=== PATIENT | female | born 1945 | race Two or more races ===

== ENCOUNTER 2017-03-11 16:02 | Inpatient (IN) | payer SELFPAY ==
[~2017-03-11] VITALS: Ht 152.4 cm; Wt 48.2 kg
[~2017-03-11 16:02] MED LIST: [UNRECOGNIZED DRUG - OTHER]
[2017-03-11] MEDS ORDERED: ASPirin 81 mg TAB PO ONE (16:45)
[2017-03-11 17:06] LABS: Basophils # (auto) 0 uL; Basophils % (auto) 0.6 % (0.0-2.0); CONDITION Y; DEFINITIVE SEE PRINTOUT; Eosinophils # (auto) 0.1 uL; Eosinophils % (auto) 1.3 % (0.0-7.0); Hematocrit 33.3 % (36.0-46.0); Hemoglobin 11.1 g/dL (12.2-16.2); Lymphocytes # (auto) 1.5 uL; Lymphocytes % (auto) 22.7 % (10.0-50.0); Mean Corpuscular Hemoglobin 25.3 pg (28.0-32.0); Mean Corpuscular Hgb Conc. 33.2 g/dL (32.0-36.0); Mean Corpuscular Volume 76.2 fL (80.0-100.0); Mean Platelet Volume 8.9 fL (7.4-10.4); Monocytes # (auto) 0.6 uL; Monocytes % (auto) 9.4 % (0.0-12.0); Neutrophils # (auto) 4.5 uL; Platelet Count (auto) 288 10^3/uL (140-450); White Blood Cell 6.8 10^3/uL (4.4-10.8)
[2017-03-11 17:23] LABS: Albumin 3.6 g/dL (3.4-5.0); Anion Gap 9 (5-15); Aspartate Aminotransferase 17 U/L (15-37); BUN/Creatinine Ratio 20.7; Blood Urea Nitrogen 12 mg/dL (7-18); Calcium 8.3 mg/dL (8.5-10.1); Carbon Dioxide 22 mmol/L (21-32); Chloride 101 mmol/L (98-107); GFR African American 132 mL/min; GFR Non-African American 109 mL/min; Glucose 83 mg/dL (74-106); Magnesium 2.1 mg/dL (1.6-2.6); Potassium 3.8 mmol/L (3.5-5.1); Sodium 132 mmol/L (136-145)
[2017-03-11 17:34] LABS: INR 0.99 (0.9-1.15); Partial Thromboplastin Time 26.6 sec (22.64-33.71); Prothrombin Time 10.8 sec (9.37-12.3)
[2017-03-11 17:51] LABS: Alkaline Phosphatase 127 U/L (45-117); Bilirubin, Total 0.5 mg/dL (0.2-1.0); Total Protein 6.6 g/dL (6.4-8.2)
[2017-03-11 18:13] LABS: B-Type Natriuretic Peptide 38.99 pg/mL (0-100)
[2017-03-11 18:16] LABS: Temperature: 23.9 C (20.0-25.0)
[2017-03-11] MEDS ORDERED: LACTULOSE 20Gm/30ML SOLN PO PRN (18:30)
[2017-03-11] MEDS ORDERED: TEMAZEPAM 15 MG CAP PO PRN (18:30)
[2017-03-11] MEDS ORDERED: MORPHINE SULF INJ 2 MG/ML SYRINGE 1ML IV PRN ×2 (18:30)
[2017-03-11] MEDS ORDERED: ENALAPRIL MALEATE 10 MG TAB PO ONE (18:30)
[2017-03-11] MEDS ORDERED: LORazepam 0.5 MG TAB PO PRN (18:30)
[2017-03-11] MEDS ORDERED: NITROGLYCERIN 0.4 MG SL TAB SL PRN (18:30)
[2017-03-11] MEDS ORDERED: NITROGLYCERIN 0.2MG/HR TOPICAL PATCH TD ONE (18:30)
[2017-03-11] MEDS ORDERED: PANTOPRAZOLE 40 MG TAB PO ONE (18:30)
[2017-03-11] MEDS ORDERED: ENOXAPARIN SOD 40 MG/0.4 ML SYRINGE SC ONE (18:30)
[2017-03-11] MEDS ORDERED: ACETAMINOPHEN 500 MG TAB PO PRN (18:30)
[2017-03-11] MEDS ORDERED: LABETALOL HCL 5 MG/ML ML 20ML VIAL IV PRN ×2 (19:30)
[2017-03-11 20:00] VITALS: BP 157/98
[2017-03-11 20:30] VITALS: BP 157/98
[2017-03-11] MEDS: SODIUM CHLOR 0.9% PF (SALINE LOCK) 10ML VIAL IV SCH (21:14)
[2017-03-11] MEDS: ATORVASTATIN 20 MG TAB PO SCH (21:14)
[2017-03-11] MEDS: METOPROLOL TARTRATE 25 MG TAB PO SCH (21:15)
[2017-03-11] MEDS: HYDROcodone-ACET 5/325MG TAB PO PRN (23:27)
[2017-03-12] MEDS ORDERED: ATOR10TA52 PO (01:58)
[2017-03-12] MEDS ORDERED: LEV100T PO (02:00)
[2017-03-12] MEDS ORDERED: ASPI1TAB37 PO (02:01)
[2017-03-12] MEDS ORDERED: CLOP75TA41 PO (02:02)
[2017-03-12 04:50] VITALS: BP 102/51
[2017-03-12 06:37] LABS: Albumin 3.3 g/dL (3.4-5.0); Alkaline Phosphatase 114 U/L (45-117); Anion Gap 10 (5-15); Aspartate Aminotransferase 13 U/L (15-37); Bilirubin, Total 0.5 mg/dL (0.2-1.0); Blood Urea Nitrogen 13 mg/dL (7-18); Calcium 8.6 mg/dL (8.5-10.1); Carbon Dioxide 23 mmol/L (21-32); Chloride 100 mmol/L (98-107); Cholesterol 99 mg/dL (< 200); GFR African American 149 mL/min; GFR Non-African American 124 mL/min; Glucose 87 mg/dL (74-106); HDL Cholesterol 38 mg/dL (40-59); LDL Cholesterol 60 mg/dL (< 100); Potassium 3.8 mmol/L (3.5-5.1); Sodium 133 mmol/L (136-145); Total Protein 6.2 g/dL (6.4-8.2); Triglycerides 99 mg/dL (< 150)
[2017-03-12] MEDS: SODIUM CHLOR 0.9% PF (SALINE LOCK) 10ML VIAL IV SCH ×3 (07:05→22:31)
[2017-03-12 08:00] VITALS: BP 99/51
[2017-03-12 08:31] VITALS: BP 99/51
[2017-03-12] MEDS: ENOXAPARIN SOD 40 MG/0.4 ML SYRINGE SC SCH (09:51)
[2017-03-12] MEDS: PANTOPRAZOLE 40 MG TAB PO SCH (09:51)
[2017-03-12] MEDS: ASPirin 81 mg TAB PO SCH (09:51)
[2017-03-12] MEDS: METOPROLOL TARTRATE 25 MG TAB PO SCH ×2 (09:52→22:32)
[2017-03-12] MEDS: ENALAPRIL MALEATE 10 MG TAB PO SCH (09:52)
[2017-03-12] MEDS: NITROGLYCERIN 0.2MG/HR TOPICAL PATCH TD SCH (09:53)
[2017-03-12] MEDS ORDERED: GASTROGRAFIN 120 ML SOL ONE (11:20)
[2017-03-12 13:00] VITALS: BP 162/79
[2017-03-12] MEDS ORDERED: ADENOSINE 41 MG in GIVE UN-DILUTED 0 ML IV STA (13:04)
[2017-03-12] MEDS: HYDROcodone-ACET 5/325MG TAB PO PRN ×2 (16:10→22:33)
[2017-03-12 16:46] VITALS: BP 138/76
[2017-03-12 22:00] VITALS: BP 150/68
[2017-03-12] MEDS: ATORVASTATIN 20 MG TAB PO SCH (22:32)
[2017-03-12] MEDS: PROMETHAZINE HCL 25 MG/ML 1ML IV PRN (22:33)
[2017-03-12] MEDS: LABETALOL HCL 5 MG/ML ML 20ML VIAL IV PRN (23:53)
[2017-03-13 00:02] VITALS: BP 195/85
[2017-03-13] MEDS: LABETALOL HCL 5 MG/ML ML 20ML VIAL IV PRN (00:07)
[2017-03-13 00:25] VITALS: BP 171/93
[2017-03-13] MEDS ORDERED: hydrALAZINE HCL 20 MG/ML VL IV ONE (01:00)
[2017-03-13 05:00] VITALS: BP 141/70
[2017-03-13] MEDS: SODIUM CHLOR 0.9% PF (SALINE LOCK) 10ML VIAL IV SCH ×3 (05:44→22:10)
[2017-03-13 08:28] VITALS: BP 153/73
[2017-03-13] MEDS: PROMETHAZINE HCL 25 MG/ML 1ML IV PRN (09:55)
[2017-03-13] MEDS: NITROGLYCERIN 0.2MG/HR TOPICAL PATCH TD SCH (10:00)
[2017-03-13] MEDS: ENOXAPARIN SOD 40 MG/0.4 ML SYRINGE SC SCH (10:15)
[2017-03-13] MEDS: METOPROLOL TARTRATE 25 MG TAB PO SCH ×2 (10:16→22:11)
[2017-03-13] MEDS: ENALAPRIL MALEATE 10 MG TAB PO SCH (10:17)
[2017-03-13] MEDS: PANTOPRAZOLE 40 MG TAB PO SCH (10:18)
[2017-03-13] MEDS: ASPirin 81 mg TAB PO SCH (10:18)
[2017-03-13 12:30] VITALS: BP_SYST 117; BP_SYST 131; BP_DIAS 112; BP_DIAS 68
[2017-03-13 14:46] LABS: Amylase 89 U/L (25-115)
[2017-03-13 22:00] VITALS: BP 114/75
[2017-03-13] MEDS: ATORVASTATIN 20 MG TAB PO SCH (22:10)
[2017-03-14 05:00] VITALS: BP 119/75
[2017-03-14] MEDS: SODIUM CHLOR 0.9% PF (SALINE LOCK) 10ML VIAL IV SCH (06:30)
[2017-03-14 06:35] LABS: Basophils # (auto) 0 uL; Basophils % (auto) 0.8 % (0.0-2.0); CONDITION Y; DEFINITIVE SEE PRINTOUT; Eosinophils # (auto) 0.1 uL; Eosinophils % (auto) 2.3 % (0.0-7.0); Hemoglobin 11.9 g/dL (12.2-16.2); Lymphocytes % (auto) 30.8 % (10.0-50.0); Mean Corpuscular Hgb Conc. 32.1 g/dL (32.0-36.0); Mean Platelet Volume 9.4 fL (7.4-10.4); Monocytes # (auto) 0.8 uL; Monocytes % (auto) 12.8 % (0.0-12.0); Neutrophils # (auto) 3.5 uL; Neutrophils % (auto) 53.3 % (37.0-80.0); Platelet Count (auto) 310 10^3/uL (140-450); Red Cell Distribution Width 16.2 % (11.6-16.0); White Blood Cell 6.6 10^3/uL (4.4-10.8)
[2017-03-14 07:00] LABS: Albumin 3.7 g/dL (3.4-5.0); BUN/Creatinine Ratio 18.5; Bilirubin, Total 0.4 mg/dL (0.2-1.0); Calcium 8.9 mg/dL (8.5-10.1)
[2017-03-14 08:00] VITALS: BP 112/73
[2017-03-14] MEDS: PANTOPRAZOLE 40 MG TAB PO SCH (09:25)
[2017-03-14] MEDS: METOPROLOL TARTRATE 25 MG TAB PO SCH (09:26)
[2017-03-14] MEDS: ASPirin 81 mg TAB PO SCH (09:26)
[2017-03-14] MEDS: ENALAPRIL MALEATE 10 MG TAB PO SCH (09:27)
[2017-03-14] MEDS: NITROGLYCERIN 0.2MG/HR TOPICAL PATCH TD SCH (09:32)
[2017-03-14] MEDS: ENOXAPARIN SOD 40 MG/0.4 ML SYRINGE SC SCH (09:32)
[2017-03-14 12:52] VITALS: BP 110/57
[2017-03-14] MEDS ORDERED: METO25TA3 PO (14:05)
[2017-03-14] MEDS ORDERED: ENA10T PO (14:05)
[2017-03-14] MEDS ORDERED: DIC10C PO (14:08)
[2017-03-14 14:36] VITALS: BP 146/79
== END 2017-03-14 15:10 | disposition home or self-care (01) | DRG 389 ==
LOC: ER 16:04 → TELE 16:05 → TELE-WESTW 19:47
PROVIDERS: ADMIT Internal Medicine; ATTEND Internal Medicine
DX: K56.7 Ileus, unspecified (principal); E44.0 Moderate protein-calorie malnutrition; E87.1 Hypo-osmolality and hyponatremia; I10 Essential (primary) hypertension; E03.9 Hypothyroidism, unspecified; E78.5 Hyperlipidemia, unspecified; I16.0 Hypertensive urgency; F32.9 Major depressive disorder, single episode, unspecified; I25.10 Atherosclerotic heart disease of native coronary artery without angina pectoris; K64.9 Unspecified hemorrhoids; M19.90 Unspecified osteoarthritis, unspecified site; Z98.49 Cataract extraction status, unspecified eye; I25.2 Old myocardial infarction; Z86.69 Personal history of other diseases of the nervous system and sense organs; Z68.20 Body mass index [BMI] 20.0-20.9, adult
CPT/HCPCS: 36415; 71010; 74176; 74250; 78452; 80053; 80061; 82150; 82550; 83690; 83735; 83880; 84484; 85025; 85379; 85610; 85652; 85730; 86141; 87081; 93005; 93017; 94761; 96372; J0153

== ENCOUNTER 2021-11-27 18:45 | Inpatient (IN) | payer MEDICAID, MEDICARE ==
[~2021-11-27] VITALS: Ht 157.5 cm; Wt 51.2 kg
[~2021-11-27 18:45] MED LIST changes: +ASPI1TAB37 PO; +ATOR10TA52 PO; +CLOP75TA70 PO; +DICY10CA PO; +ENAL10TA12 PO; +LEV100T PO; +METO25TA36 PO
[2021-11-27] MEDS ORDERED: LABETALOL HCL 5 MG/ML 4ML SYRINGE IV ONE ×3 (20:03→21:00)
[2021-11-27] MEDS ORDERED: ONDANSETRON HCL 4 MG/2 ML VIAL ONE (20:28)
[2021-11-27] MEDS ORDERED: ONDANSETRON HCL 4 MG/2 ML VIAL IV ONE (20:45)
[2021-11-27 21:03] LABS: Basophils # (auto) 0.2 10 ^3/uL (0-0.2); Eosinophils # (auto) 0.3 10 ^3/uL (0-0.8); Eosinophils % (auto) 4.1 % (0.0-7.0); Hematocrit 31.8 % (36.0-46.0); Lymphocytes # (auto) 1.5 10 ^3/uL (0.4-5.4); Lymphocytes % (auto) 17.9 % (10.0-50.0); Mean Corpuscular Hgb Conc. 34.5 g/dL (32.0-36.0); Mean Corpuscular Volume 83.8 fL (80.0-100.0); Monocytes # (auto) 0.7 10 ^3/uL (0-1.3); Neutrophils # (auto) 5.7 10 ^3/uL (1.6-8.6); Nucleated Red Blood Cells % 0.1 %; Red Blood Cells 3.79 10^6/uL (4.0-5.20); Red Cell Distribution Width 14.7 % (11.8-14.3); White Blood Cell 8.4 10^3/uL (4.4-10.8)
[2021-11-27 21:19] LABS: Albumin 3.5 g/dL (3.4-5.0); Calcium 8.6 mg/dL (8.5-10.1); Potassium 3.2 mmol/L (3.5-5.1)
[2021-11-27 21:21] LABS: BUN/Creatinine Ratio 18.3
[2021-11-27 21:23] LABS: Bilirubin, Total 0.4 mg/dL (0.2-1.0); Total Protein 6.7 g/dL (6.4-8.2)
[2021-11-27 21:23] LABS: Urine Bacteria NONE SEEN /hpf (None Seen); Urine Blood TRACE /uL (Negative); Urine WBC <1 /hpf (0 - 5)
[2021-11-27] MEDS ORDERED: cefTRIAXone 1GM/50ML D5W 50 ML IV ONE (22:00)
[2021-11-27] MEDS ORDERED: HYDROcodone-ACET 5/325MG TAB PO ONE (22:30)
[2021-11-27] MEDS ORDERED: SODIUM CHLORIDE 0.9% 1,000 ML IV SCH (22:30)
[2021-11-27] MEDS ORDERED: ACETAMINOPHEN 325 MG TAB PO PRN (22:30)
[2021-11-28] MEDS ORDERED: MORPHINE SULFATE INJ 2 MG/ml SYRG IV PRN
[2021-11-28] MEDS ORDERED: NITROGLYCERIN 0.4 MG SL TAB SL PRN
[2021-11-28] MEDS: hydrALAZINE HCL 20 MG/ML VL IV PRN ×3 (03:51→17:10)
[2021-11-28] MEDS: HYDROcodone-ACET 5/325MG TAB PO PRN (05:05)
[2021-11-28] MEDS: ONDANSETRON HCL 4 MG/2 ML VIAL IV PRN ×3 (05:18→22:42)
[2021-11-28 05:39] LABS: Basophils # (auto) 0 10 ^3/uL (0-0.2); Basophils % (auto) 0.5 % (0.0-2.0); Eosinophils # (auto) 0.2 10 ^3/uL (0-0.8); Eosinophils % (auto) 3.1 % (0.0-7.0); Hematocrit 29.9 % (36.0-46.0); Hemoglobin 10.1 g/dL (12.2-16.2); Lymphocytes # (auto) 1.3 10 ^3/uL (0.4-5.4); Lymphocytes % (auto) 19.6 % (10.0-50.0); Mean Corpuscular Hemoglobin 28.5 pg (28.0-32.0); Mean Corpuscular Hgb Conc. 33.9 g/dL (32.0-36.0); Monocytes # (auto) 0.7 10 ^3/uL (0-1.3); Monocytes % (auto) 11.2 % (0.0-12.0); Neutrophils # (auto) 4.3 10 ^3/uL (1.6-8.6); Neutrophils % (auto) 65.6 % (37.0-80.0); Nucleated Red Blood Cells % 0.1 %; Red Blood Cells 3.55 10^6/uL (4.0-5.20); Red Cell Distribution Width 14.6 % (11.8-14.3); White Blood Cell 6.5 10^3/uL (4.4-10.8)
[2021-11-28 05:46] LABS: Albumin 3.1 g/dL (3.4-5.0); Potassium 3.3 mmol/L (3.5-5.1)
[2021-11-28 05:49] LABS: BUN/Creatinine Ratio 13.8; Bilirubin, Total 0.4 mg/dL (0.2-1.0); Total Protein 6.1 g/dL (6.4-8.2)
[2021-11-28] MEDS ORDERED: LEVOTHYROXINE SODIUM 100 MCG TAB PO SCH (07:00)
[2021-11-28] MEDS ORDERED: POTASSIUM CHL 20 Meq TABLET PO ONE ×3 (07:30→09:30)
[2021-11-28] MEDS ORDERED: ENALAPRIL MALEATE 10 MG TAB PO SCH (10:00)
[2021-11-28] MEDS ORDERED: LEVOTHYROXINE SODIUM 25 MCG TAB PO ONE (10:00)
[2021-11-28 10:30] VITALS: BP 192/96
[2021-11-28] MEDS: cefTRIAXone 1GM/50ML D5W 50 ML IV SCH (12:07)
[2021-11-28 13:00] VITALS: BP 134/69
[2021-11-28] MEDS: ASPirin 81 mg TAB PO SCH (14:58)
[2021-11-28] MEDS: CLOPIDOGREL BISULFATE 75 MG TAB PO SCH (14:59)
[2021-11-28] MEDS: METOPROLOL TARTRATE 25 MG TAB PO SCH ×2 (14:59→22:00)
[2021-11-28 17:00] VITALS: BP 143/87
[2021-11-28] MEDS: FUROSEMIDE 40 MG/4 ML VIAL IV SCH (19:14)
[2021-11-28] MEDS: PANTOPRAZOLE 40 MG/10 ML VIAL INJ IV SCH (19:16)
[2021-11-28 20:00] VITALS: BP 130/74
[2021-11-29] VITALS (7 sets, daily range): BP systolic 121–187; BP diastolic 65–85
[2021-11-29] MEDS: PANTOPRAZOLE 40 MG/10 ML VIAL INJ IV SCH ×2 (04:57→16:42)
[2021-11-29] MEDS: ONDANSETRON HCL 4 MG/2 ML VIAL IV PRN ×4 (05:07→23:40)
[2021-11-29] MEDS: FUROSEMIDE 40 MG/4 ML VIAL IV SCH ×2 (05:08→18:00)
[2021-11-29 06:20] LABS: BUN/Creatinine Ratio 13.5; Magnesium 1.7 mg/dL (1.6-2.6)
[2021-11-29] MEDS: LEVOTHYROXINE SODIUM 50 MCG TAB PO SCH (08:25)
[2021-11-29] MEDS: cefTRIAXone 1GM/50ML D5W 50 ML IV SCH (08:48)
[2021-11-29] MEDS: CLOPIDOGREL BISULFATE 75 MG TAB PO SCH (08:49)
[2021-11-29] MEDS: METOPROLOL TARTRATE 25 MG TAB PO SCH ×2 (08:49→23:49)
[2021-11-29] MEDS: ASPirin 81 mg TAB PO SCH (08:49)
[2021-11-29] MEDS: SUCRALFATE 1 GM/10 ML ORAL SUSP PO SCH ×2 (16:42→23:48)
[2021-11-29] MEDS: hydrALAZINE HCL 20 MG/ML VL IV PRN (16:56)
[2021-11-30] VITALS (7 sets, daily range): BP systolic 108–160; BP diastolic 57–81
[2021-11-30] MEDS: PANTOPRAZOLE 40 MG/10 ML VIAL INJ IV SCH ×2 (04:20→16:57)
[2021-11-30 04:59] LABS: Hematocrit 31.7 % (36.0-46.0); Mean Corpuscular Hemoglobin 28.6 pg (28.0-32.0); Mean Corpuscular Hgb Conc. 34.7 g/dL (32.0-36.0); Mean Corpuscular Volume 82.4 fL (80.0-100.0); Red Blood Cells 3.85 10^6/uL (4.0-5.20); Red Cell Distribution Width 14.4 % (11.8-14.3); White Blood Cell 4.6 10^3/uL (4.4-10.8)
[2021-11-30 05:18] LABS: Magnesium 1.9 mg/dL (1.6-2.6); Potassium 3.5 mmol/L (3.5-5.1)
[2021-11-30 05:43] LABS: Basophils % (manual) 0 (0.0-2.0); Blast Cells 0; Metamyelocytes % 0; Myelocytes % 0; Promyelocytes % 0; Reactive Lymphocytes 0
[2021-11-30] MEDS: FUROSEMIDE 40 MG/4 ML VIAL IV SCH ×2 (06:00→16:57)
[2021-11-30] MEDS: LEVOTHYROXINE SODIUM 50 MCG TAB PO SCH (06:15)
[2021-11-30] MEDS: SUCRALFATE 1 GM/10 ML ORAL SUSP PO SCH ×4 (06:15→21:21)
[2021-11-30 08:36] LABS: Band Neutrophils % (manual) 6; Eosinophils % (manual) 5 (0-7); Lymphocytes % (manual) 10 (10.0-50.0); Monocytes % (manual) 19 (0-12)
[2021-11-30] MEDS: SACUBITRIL-VALSARTAN 24mg/26mg TAB PO SCH ×2 (08:53→21:21)
[2021-11-30] MEDS: ASPirin 81 mg TAB PO SCH (08:53)
[2021-11-30] MEDS: CLOPIDOGREL BISULFATE 75 MG TAB PO SCH (08:53)
[2021-11-30] MEDS: cefTRIAXone 1GM/50ML D5W 50 ML IV SCH (08:53)
[2021-11-30] MEDS: METOPROLOL TARTRATE 25 MG TAB PO SCH ×2 (08:54→21:24)
[2021-11-30] MEDS: DOCUSATE SOD 100 MG CAP PO PRN (09:05)
[2021-11-30] MEDS ORDERED: POTASSIUM CHL 20MEQ/100ML 100 ML IV ONE (10:45)
[2021-12-01] MEDS: HYDROcodone-ACET 5/325MG TAB PO PRN ×3 (02:58→20:09)
[2021-12-01] MEDS: PANTOPRAZOLE 40 MG/10 ML VIAL INJ IV SCH ×2 (04:43→15:16)
[2021-12-01 05:00] VITALS: BP 108/54
[2021-12-01] MEDS: FUROSEMIDE 40 MG/4 ML VIAL IV SCH ×2 (05:09→10:00)
[2021-12-01] MEDS: LEVOTHYROXINE SODIUM 50 MCG TAB PO SCH (05:15)
[2021-12-01] MEDS: SUCRALFATE 1 GM/10 ML ORAL SUSP PO SCH ×4 (05:16→21:53)
[2021-12-01 08:00] VITALS: BP 94/48
[2021-12-01 09:00] VITALS: BP 94/48
[2021-12-01 09:49] LABS: Magnesium 1.7 mg/dL (1.6-2.6); Potassium 3.5 mmol/L (3.5-5.1)
[2021-12-01] MEDS: SACUBITRIL-VALSARTAN 24mg/26mg TAB PO SCH ×2 (10:00→21:55)
[2021-12-01] MEDS: METOPROLOL TARTRATE 25 MG TAB PO SCH ×2 (10:00→21:54)
[2021-12-01] MEDS: cefTRIAXone 1GM/50ML D5W 50 ML IV SCH (10:33)
[2021-12-01] MEDS: ASPirin 81 mg TAB PO SCH (10:34)
[2021-12-01] MEDS: CLOPIDOGREL BISULFATE 75 MG TAB PO SCH (10:34)
[2021-12-01] MEDS: DOCUSATE SOD 100 MG CAP PO PRN (10:35)
[2021-12-01] MEDS: ONDANSETRON HCL 4 MG/2 ML VIAL IV PRN (10:35)
[2021-12-01] MEDS ORDERED: ADENOSINE 42 MG in GIVE UN-DILUTED 0 ML IV STA (12:34)
[2021-12-01 13:22] VITALS: BP 158/76
[2021-12-01] MEDS ORDERED: LEV25T GT (15:58)
[2021-12-01] MEDS ORDERED: RIVA2.5T PO (15:58)
[2021-12-01] MEDS ORDERED: ATOR20TA50 PO (15:58)
[2021-12-01] MEDS ORDERED: ATEN-60 PO (15:58)
[2021-12-01] MEDS ORDERED: ASPI1TAB37 PO (16:02)
[2021-12-01 17:00] VITALS: BP 135/65
[2021-12-01 22:00] VITALS: BP 145/77
[2021-12-02 05:00] VITALS: BP 156/86
[2021-12-02] MEDS: PANTOPRAZOLE 40 MG/10 ML VIAL INJ IV SCH ×2 (05:13→17:42)
[2021-12-02] MEDS: hydrALAZINE HCL 20 MG/ML VL IV PRN ×2 (05:14→17:30)
[2021-12-02] MEDS: LEVOTHYROXINE SODIUM 50 MCG TAB PO SCH (06:31)
[2021-12-02] MEDS: SUCRALFATE 1 GM/10 ML ORAL SUSP PO SCH ×3 (06:31→17:42)
[2021-12-02 07:27] LABS: INR 1.04 (0.9-1.15); Partial Thromboplastin Time 26.6 sec (23.6-33.0)
[2021-12-02] MEDS ORDERED: ADENOSINE 43 MG in GIVE UN-DILUTED 0 ML IV ONE (07:30)
[2021-12-02] MEDS: cefTRIAXone 1GM/50ML D5W 50 ML IV SCH (09:14)
[2021-12-02 09:17] VITALS: BP 156/101
[2021-12-02] MEDS ORDERED: MIDAZOLAM HCL 5 MG/ML-1ML VIAL ONE (09:41)
[2021-12-02] MEDS ORDERED: diphenhdrAMINE HCL 50 MG/1 ML VL ONE (09:41)
[2021-12-02] MEDS ORDERED: LIDOCAINE VISCOUS 2% 15ML UD ONE (09:41)
[2021-12-02] MEDS: ASPirin 81 mg TAB PO SCH (10:00)
[2021-12-02] MEDS: METOPROLOL TARTRATE 25 MG TAB PO SCH (10:00)
[2021-12-02] MEDS: FUROSEMIDE 40 MG/4 ML VIAL IV SCH (10:00)
[2021-12-02] MEDS: CLOPIDOGREL BISULFATE 75 MG TAB PO SCH (10:00)
[2021-12-02] MEDS: SACUBITRIL-VALSARTAN 24mg/26mg TAB PO SCH (10:00)
[2021-12-02] MEDS: fentaNYL CITRATE 100 MCG/2 ML VL ONE ×2 (11:42→11:46)
[2021-12-02] MEDS ORDERED: MILK OF MAGNESIA 30ML SUSP PO ONE (13:00)
[2021-12-02] MEDS ORDERED: LACTULOSE 20Gm/30ML SOLN PO SCH (13:30)
[2021-12-02] MEDS ORDERED: PANT40TA2 PO (15:00)
[2021-12-02] MEDS ORDERED: SUCR1SUS10 PO (15:00)
[2021-12-02 17:00] VITALS: BP 188/105
[2021-12-02] MEDS ORDERED: METOPROLOL TARTRATE 1MG/1ML-5ML VIAL IV ONE (17:45)
== END 2021-12-02 19:40 | disposition home or self-care (01) | DRG 199 ==
LOC: ER 18:45 → EDUNIT# 18:45 → EDBD 18:45 → TELE 23:58 → TELE-WESTW 11-28 10:21
PROVIDERS: ADMIT Nurse Practitioner Family; ATTEND Internal Medicine
PROC: 0DB68ZX Excision of Stomach, Via Natural or Artificial Opening Endoscopic, Diagnostic (ICD-10-PCS; 2021-12-02)
PROC: 0DB98ZX Excision of Duodenum, Via Natural or Artificial Opening Endoscopic, Diagnostic (ICD-10-PCS; principal; 2021-12-02 11:40)
DX: I16.1 Hypertensive emergency (principal); I50.41 Acute combined systolic (congestive) and diastolic (congestive) heart failure; E44.0 Moderate protein-calorie malnutrition; K29.70 Gastritis, unspecified, without bleeding; I11.0 Hypertensive heart disease with heart failure; E87.1 Hypo-osmolality and hyponatremia; E87.6 Hypokalemia; D64.9 Anemia, unspecified; G47.33 Obstructive sleep apnea (adult) (pediatric); F32.A Depression, unspecified; K21.9 Gastro-esophageal reflux disease without esophagitis; Z20.822 Contact with and (suspected) exposure to COVID-19; R07.89 Other chest pain; Z68.20 Body mass index [BMI] 20.0-20.9, adult; E03.9 Hypothyroidism, unspecified; E78.5 Hyperlipidemia, unspecified; F41.0 Panic disorder [episodic paroxysmal anxiety]; I25.10 Atherosclerotic heart disease of native coronary artery without angina pectoris; I25.2 Old myocardial infarction; Z79.01 Long term (current) use of anticoagulants; Z95.5 Presence of coronary angioplasty implant and graft
CPT/HCPCS: 36415; 43239; 70450; 71045; 73200; 74176; 80048; 80053; 81001; 83690; 83735; 83880; 84132; 84443; 84484; 85007; 85025; 85027; 85610; 85730; 86850; 86900; 86901; 93005; 93306; 96365; 96366; 96375; 96376; 97110; 97116; 97163; 97530; 99291; C9113; G0378; J0153; J0696; J2250; J2405; J3480; J3490

== ENCOUNTER 2022-09-17 12:27 | Inpatient (IN) | payer MEDICAID ==
[~2022-09-17] VITALS: Ht 162.6 cm; Wt 55.5 kg
[~2022-09-17 12:27] MED LIST changes: +ATEN-60 PO; -ATOR10TA52 PO; +ATOR20TA50 PO; -CLOP75TA70 PO; -DICY10CA PO; -ENAL10TA12 PO; -LEV100T PO; +LEV25T GT; -METO25TA36 PO; +PANT40TA2 PO; +RIVA2.5T PO; +SUCR1SUS10 PO; -[UNRECOGNIZED DRUG - OTHER]
[2022-09-17] MEDS ORDERED: ATENOLOL 25 MG TAB PO ONE (15:30)
[2022-09-17] MEDS ORDERED: MORPHINE SULFATE INJ 2 MG/ml SYRG IV ONE (15:30)
[2022-09-17] MEDS ORDERED: IOHEXOL 350 MG/ML 100ML IJ ONE (15:36)
[2022-09-17 16:39] LABS: Basophils # (auto) 0 10 ^3/uL (0-0.2); Basophils % (auto) 0.6 % (0.0-2.0); Eosinophils # (auto) 0.1 10 ^3/uL (0-0.8); Eosinophils % (auto) 1.8 % (0.0-7.0); Hemoglobin 11.2 g/dL (12.2-16.2); Lymphocytes # (auto) 1.4 10 ^3/uL (0.4-5.4); Lymphocytes % (auto) 18.6 % (10.0-50.0); Mean Corpuscular Hemoglobin 28.7 pg (28.0-32.0); Mean Corpuscular Hgb Conc. 33.8 g/dL (32.0-36.0); Mean Corpuscular Volume 85.1 fL (80.0-100.0); Monocytes % (auto) 13.2 % (0.0-12.0); Neutrophils # (auto) 4.9 10 ^3/uL (1.6-8.6); Neutrophils % (auto) 65.8 % (37.0-80.0); Nucleated Red Blood Cells % 0.1 %; Red Blood Cells 3.88 10^6/uL (4.0-5.20); Red Cell Distribution Width 12.8 % (11.8-14.3); White Blood Cell 7.4 10^3/uL (4.4-10.8)
[2022-09-17] MEDS ORDERED: cloNIDine HCL 0.1 MG TAB PO ONE (16:45)
[2022-09-17 16:47] LABS: Urine Bacteria NONE SEEN /hpf (None Seen); Urine Blood Negative /uL (Negative); Urine Specific Gravity 1.018 (1.001-1.035); Urine WBC 2 /hpf (0 - 5)
[2022-09-17 16:56] LABS: Albumin 3.8 g/dL (3.4-5.0); BUN/Creatinine Ratio 23.5; Calcium 8.2 mg/dL (8.5-10.1); Magnesium 1.7 mg/dL (1.6-2.6); Potassium 3.9 mmol/L (3.5-5.1)
[2022-09-17 17:00] LABS: Bilirubin, Total 0.5 mg/dL (0.2-1.0); Total Protein 6.2 g/dL (6.4-8.2)
[2022-09-17] MEDS ORDERED: hydrALAZINE HCL 20 MG/ML VL IV ONE ×2 (17:00→18:00)
[2022-09-17] MEDS ORDERED: NITROGLYCERIN 0.4 MG SL TAB SL PRN (17:45)
[2022-09-17] MEDS ORDERED: ACETAMINOPHEN 325 MG TAB PO PRN (17:45)
[2022-09-17] MEDS ORDERED: MORPHINE SULFATE INJ 2 MG/ml SYRG IV PRN (17:45)
[2022-09-17] MEDS: ETOMIDATE (2MG/ML) 20ML VIAL IV ONE (17:51)
[2022-09-17] MEDS ORDERED: ONDANSETRON HCL 4 MG/2 ML VIAL IV ONE (18:00)
[2022-09-17] MEDS ORDERED: hydrALAZINE HCL 20 MG/ML VL ONE (18:03)
[2022-09-17] MEDS ORDERED: ONDANSETRON HCL 4 MG/2 ML VIAL ONE (18:03)
[2022-09-17] MEDS ORDERED: PANTOPRAZOLE 40 MG TAB PO ONE (18:45)
[2022-09-17] MEDS: SODIUM CHLORIDE 0.9% 1,000 ML IV SCH (19:06)
[2022-09-17 19:10] LABS: Cholesterol 112 mg/dL (< 200); Triglycerides 74 mg/dL (< 150)
[2022-09-17 19:13] LABS: HDL Cholesterol 51 mg/dL (40-59); LDL Cholesterol 57 mg/dL (< 100)
[2022-09-17] MEDS: MORPHINE SULFATE INJ 2 MG/ml SYRG IV PRN (21:35)
[2022-09-17] MEDS: ONDANSETRON HCL 4 MG/2 ML VIAL IV PRN (21:35)
[2022-09-17] MEDS ORDERED: RIVAROXABAN 2.5 MG PO SCH (22:00)
[2022-09-17] MEDS ORDERED: MELATONIN 5 MG TAB PO ONE (22:22)
[2022-09-17] MEDS: ATENOLOL 25 MG TAB PO SCH (22:32)
[2022-09-17] MEDS: SUCRALFATE 1 GM/10 ML ORAL SUSP PO SCH (22:32)
[2022-09-18] MEDS: MORPHINE SULFATE INJ 2 MG/ml SYRG IV PRN (02:34)
[2022-09-18] MEDS: ONDANSETRON HCL 4 MG/2 ML VIAL IV PRN (02:34)
[2022-09-18] MEDS ORDERED: METOCLOPRAMIDE HCL 5MG/ml INJ 2ml VIAL IV PRN (03:45)
[2022-09-18] MEDS: hydrALAZINE HCL 20 MG/ML VL IV PRN (03:50)
[2022-09-18] MEDS ORDERED: METOCLOPRAMIDE HCL 5MG/ml INJ 2ml VIAL IV SCH (06:00)
[2022-09-18] MEDS: SUCRALFATE 1 GM/10 ML ORAL SUSP PO SCH ×4 (07:08→21:55)
[2022-09-18 07:31] LABS: Hematocrit 32.6 % (36.0-46.0); Hemoglobin 11.2 g/dL (12.2-16.2); Mean Corpuscular Hemoglobin 28.9 pg (28.0-32.0); Mean Corpuscular Hgb Conc. 34.5 g/dL (32.0-36.0); Red Blood Cells 3.88 10^6/uL (4.0-5.20); Red Cell Distribution Width 12.5 % (11.8-14.3); White Blood Cell 8.2 10^3/uL (4.4-10.8)
[2022-09-18 07:34] LABS: Basophils % (manual) 0 (0.0-2.0); Blast Cells 0; Eosinophils % (manual) 0 (0-7); Metamyelocytes % 0; Myelocytes % 0; Promyelocytes % 0; Reactive Lymphocytes 0
[2022-09-18 08:03] LABS: Band Neutrophils % (manual) 16; Lymphocytes % (manual) 22 (10.0-50.0); Monocytes % (manual) 12 (0-12)
[2022-09-18] MEDS ORDERED: ASPirin-EC 81 mg tab PO SCH (10:00)
[2022-09-18] MEDS ORDERED: LEVOTHYROXINE SODIUM 25 MCG TAB GT SCH ×2 (10:00)
[2022-09-18] MEDS ORDERED: APIXABAN 5 MG TAB PO SCH (10:00)
[2022-09-18] MEDS: SODIUM CHLORIDE 0.9% 1,000 ML IV SCH (10:25)
[2022-09-18] MEDS: ASPirin-EC 81 mg tab PO SCH (10:38)
[2022-09-18] MEDS: PANTOPRAZOLE 40 MG TAB PO SCH (10:39)
[2022-09-18] MEDS: ATORVASTATIN 20 MG TAB PO SCH (10:39)
[2022-09-18] MEDS: ATENOLOL 25 MG TAB PO SCH ×2 (10:40→21:56)
[2022-09-18 11:49] VITALS: BP 139/64
[2022-09-18] MEDS ORDERED: FLUO10TA18 PO (13:42)
[2022-09-18] MEDS ORDERED: ALPR0.255 PO (13:42)
[2022-09-18] MEDS ORDERED: MONT-8 PO (13:42)
[2022-09-18] MEDS ORDERED: APIX5TAB PO (13:42)
[2022-09-18] MEDS ORDERED: LOS25T PO (13:42)
[2022-09-18 16:14] LABS: BUN/Creatinine Ratio 18.3; Calcium 8.6 mg/dL (8.5-10.1); Magnesium 1.9 mg/dL (1.6-2.6); Phosphorus 3.4 mg/dL (2.5-4.90); Potassium 3.9 mmol/L (3.5-5.1)
[2022-09-18 17:00] VITALS: BP 158/77
[2022-09-18 17:51] LABS: Sodium Urine 35 mmol/L (40-220)
[2022-09-18 17:53] LABS: Creatinine, Urine 132 mg/dL (30.0-125.0)
[2022-09-18] MEDS: HYDROcodone-ACET 5/325MG TAB PO PRN (19:55)
[2022-09-18] MEDS: APIXABAN 2.5 MG TAB PO SCH (21:59)
[2022-09-18 22:00] VITALS: BP 138/76
[2022-09-19] MEDS: SODIUM CHLORIDE 0.9% 1,000 ML IV SCH (03:05)
[2022-09-19 05:00] VITALS: BP 157/79
[2022-09-19] MEDS: HYDROcodone-ACET 5/325MG TAB PO PRN ×3 (06:26→21:25)
[2022-09-19 06:40] LABS: Potassium 3.6 mmol/L (3.5-5.1)
[2022-09-19 06:52] LABS: BUN/Creatinine Ratio 22.8; Calcium 8.6 mg/dL (8.5-10.1)
[2022-09-19] MEDS: SUCRALFATE 1 GM/10 ML ORAL SUSP PO SCH ×4 (07:42→21:21)
[2022-09-19 08:48] VITALS: BP 140/77
[2022-09-19] MEDS: ASPirin-EC 81 mg tab PO SCH (08:49)
[2022-09-19] MEDS: APIXABAN 2.5 MG TAB PO SCH ×2 (08:49→21:23)
[2022-09-19] MEDS: PANTOPRAZOLE 40 MG TAB PO SCH (08:50)
[2022-09-19] MEDS: ATORVASTATIN 20 MG TAB PO SCH (08:50)
[2022-09-19] MEDS: ATENOLOL 25 MG TAB PO SCH ×2 (08:50→21:23)
[2022-09-19 13:17] VITALS: BP 168/79
[2022-09-19 17:06] VITALS: BP 184/77
[2022-09-19] MEDS: LISINOPRIL 10 MG TAB PO SCH (17:21)
[2022-09-19] MEDS ORDERED: diphenhdrAMINE HCL 50 MG/1 ML VL IV PRN (20:45)
[2022-09-19] MEDS: traZODone HCL 50 MG TAB PO SCH (21:22)
[2022-09-19 22:00] VITALS: BP 195/84
[2022-09-19] MEDS: MORPHINE SULFATE INJ 2 MG/ml SYRG IV PRN (22:46)
[2022-09-19] MEDS: hydrALAZINE HCL 20 MG/ML VL IV PRN (22:55)
[2022-09-20 05:00] VITALS: BP 153/71
[2022-09-20 05:35] VITALS: BP 130/57
[2022-09-20] MEDS: SUCRALFATE 1 GM/10 ML ORAL SUSP PO SCH ×4 (05:40→20:52)
[2022-09-20 05:57] LABS: Basophils # (auto) 0 10 ^3/uL (0-0.2); Basophils % (auto) 0.6 % (0.0-2.0); Eosinophils # (auto) 0.1 10 ^3/uL (0-0.8); Eosinophils % (auto) 2.1 % (0.0-7.0); Hemoglobin 10.1 g/dL (12.2-16.2); Lymphocytes # (auto) 0.9 10 ^3/uL (0.4-5.4); Lymphocytes % (auto) 17.7 % (10.0-50.0); Mean Corpuscular Hemoglobin 29.6 pg (28.0-32.0); Mean Corpuscular Hgb Conc. 34.9 g/dL (32.0-36.0); Mean Corpuscular Volume 84.7 fL (80.0-100.0); Monocytes # (auto) 0.6 10 ^3/uL (0-1.3); Neutrophils # (auto) 3.3 10 ^3/uL (1.6-8.6); Neutrophils % (auto) 66.6 % (37.0-80.0); Nucleated Red Blood Cells % 0.2 %; Red Blood Cells 3.43 10^6/uL (4.0-5.20); Red Cell Distribution Width 13.1 % (11.8-14.3)
[2022-09-20 06:12] LABS: Calcium 8.2 mg/dL (8.5-10.1); Potassium 3.3 mmol/L (3.5-5.1)
[2022-09-20 06:14] LABS: BUN/Creatinine Ratio 16.4
[2022-09-20 09:00] VITALS: BP 152/69
[2022-09-20] MEDS: ASPirin-EC 81 mg tab PO SCH (09:36)
[2022-09-20] MEDS: PANTOPRAZOLE 40 MG TAB PO SCH (09:37)
[2022-09-20] MEDS: APIXABAN 2.5 MG TAB PO SCH ×2 (09:37→20:51)
[2022-09-20] MEDS: ATORVASTATIN 20 MG TAB PO SCH (09:37)
[2022-09-20] MEDS: ATENOLOL 25 MG TAB PO SCH ×2 (09:40→20:49)
[2022-09-20] MEDS: LISINOPRIL 10 MG TAB PO SCH (09:43)
[2022-09-20] MEDS ORDERED: POTASSIUM CHL 20 Meq TABLET PO ONE (09:45)
[2022-09-20 13:00] VITALS: BP 90/40
[2022-09-20] MEDS: MORPHINE SULFATE INJ 2 MG/ml SYRG IV PRN ×2 (16:49→22:34)
[2022-09-20 17:01] VITALS: BP 137/77
[2022-09-20] MEDS: traZODone HCL 50 MG TAB PO SCH (20:50)
[2022-09-20] MEDS: HYDROcodone-ACET 5/325MG TAB PO PRN (20:51)
[2022-09-20] MEDS: hydrALAZINE HCL 20 MG/ML VL IV PRN (22:33)
[2022-09-21] MEDS ORDERED: LACTULOSE 20Gm/30ML SOLN PO ONE (00:30)
[2022-09-21 05:00] VITALS: BP_SYST 104; BP_SYST 128; BP_SYST 83; BP_DIAS 42; BP_DIAS 56; BP_DIAS 58
[2022-09-21] MEDS: SUCRALFATE 1 GM/10 ML ORAL SUSP PO SCH ×3 (06:41→17:00)
[2022-09-21 09:00] VITALS: BP 161/72
[2022-09-21] MEDS: ATORVASTATIN 20 MG TAB PO SCH (09:58)
[2022-09-21] MEDS: APIXABAN 2.5 MG TAB PO SCH (09:58)
[2022-09-21] MEDS: ASPirin-EC 81 mg tab PO SCH (09:58)
[2022-09-21 09:59] LABS: BUN/Creatinine Ratio 17.2; Calcium 8.6 mg/dL (8.5-10.1); Phosphorus 3.2 mg/dL (2.5-4.90); Potassium 3.6 mmol/L (3.5-5.1)
[2022-09-21] MEDS: PANTOPRAZOLE 40 MG TAB PO SCH (09:59)
[2022-09-21] MEDS: ATENOLOL 25 MG TAB PO SCH (10:00)
[2022-09-21] MEDS: LISINOPRIL 10 MG TAB PO SCH (10:01)
[2022-09-21] MEDS ORDERED: DOCUSATE SOD 100 MG CAP PO ONE (12:15)
[2022-09-21] MEDS ORDERED: LOSARTAN POTASSIUM 50 MG TAB PO ONE (12:15)
[2022-09-21] MEDS ORDERED: LEV100T PO (12:49)
[2022-09-21] MEDS ORDERED: APIX2.5T PO (12:51)
[2022-09-21] MEDS ORDERED: ASPI-543 PO (12:51)
[2022-09-21 13:00] VITALS: BP 159/73
[2022-09-21] MEDS: MORPHINE SULFATE INJ 2 MG/ml SYRG IV PRN (15:25)
[2022-09-21 16:23] VITALS: BP 134/62
[2022-09-21 17:22] VITALS: BP 160/75
== END 2022-09-21 18:10 | disposition home health service (06) | DRG 199 ==
LOC: EDBD 12:27 → ER 12:27 → TELE 17:47 → TELE-E-ADS 09-18 11:41 → TELE-WESTW 09-18 15:27 → WEST WING 09-19 22:15
PROVIDERS: ADMIT Nurse Practitioner Family; ATTEND Internal Medicine
DX: I16.9 Hypertensive crisis, unspecified (principal); E87.1 Hypo-osmolality and hyponatremia; F33.1 Major depressive disorder, recurrent, moderate; D64.9 Anemia, unspecified; E03.9 Hypothyroidism, unspecified; S52.612A Displaced fracture of left ulna styloid process, initial encounter for closed fracture; Z20.822 Contact with and (suspected) exposure to COVID-19; X58.XXXA Exposure to other specified factors, initial encounter; E78.5 Hyperlipidemia, unspecified; M19.90 Unspecified osteoarthritis, unspecified site; Z96.659 Presence of unspecified artificial knee joint; I25.10 Atherosclerotic heart disease of native coronary artery without angina pectoris; Z98.61 Coronary angioplasty status; Z98.41 Cataract extraction status, right eye; Z79.899 Other long term (current) drug therapy; Y93.89 Activity, other specified; Y92.89 Other specified places as the place of occurrence of the external cause; Y99.8 Other external cause status
CPT/HCPCS: 25605; 36415; 70450; 71045; 71275; 72125; 73090; 73100; 73110; 73130; 80048; 80053; 80061; 81001; 82306; 82570; 82962; 83735; 83880; 83930; 83935; 83970; 84100; 84300; 84439; 84443; 84484; 84550; 85007; 85025; 85027; 87426; 93306; 93886; 96374; 96375; 99152; 99291; G0378; J2405